=== PATIENT | female | born 1970 | race Two or more races ===

== ENCOUNTER 2021-12-25 07:42 | Emergency (ER) | payer OTHER ==
[~2021-12-25] VITALS: Ht 160 cm; Wt 79.9 kg
[2021-12-25 08:02] VITALS: BP 140/84
[2021-12-25] MEDS ORDERED: CEPH-509 PO (09:31)
[2021-12-25] MEDS ORDERED: ACET-1158 PO (09:31)
[2021-12-25] MEDS ORDERED: TETANUS-DIPTH-ACEL PERTUSSIS 0.5ML SYR Tdap IM ONE (10:00)
[2021-12-25] MEDS ORDERED: cefTRIAXone SOD 1,000 MG VL IM ONE (10:00)
== END 2021-12-25 10:30 | disposition home or self-care (01) ==
LOC: ER 07:42
DX: S01.111A Laceration without foreign body of right eyelid and periocular area, initial encounter (principal); W26.8XXA Contact with other sharp object(s), not elsewhere classified, initial encounter; Y93.89 Activity, other specified; Y92.89 Other specified places as the place of occurrence of the external cause; Y99.8 Other external cause status
CPT/HCPCS: 12011; 90471; 90715; 96372; 99284; J0696

== ENCOUNTER 2021-12-30 08:08 | Emergency (ER) | payer OTHER ==
[~2021-12-30] VITALS: Ht 160 cm; Wt 77.8 kg
[~2021-12-30 08:08] MED LIST: ACET-1158 PO; CEPH-509 PO
[2021-12-30 08:44] VITALS: BP 140/80
== END 2021-12-30 08:53 | disposition home or self-care (01) ==
LOC: ER 08:08
DX: S01.111D Laceration without foreign body of right eyelid and periocular area, subsequent encounter (principal); Z79.899 Other long term (current) drug therapy; X58.XXXD Exposure to other specified factors, subsequent encounter